=== PATIENT | male | born 1975 | race Caucasian/White ===

== ENCOUNTER 2021-11-14 11:00 | Outpatient (CLI) | payer OTHER, SELFPAY ==
[2021-11-14 17:24] LABS: Chloride* 103 mmol/L (96-114); Sodium* 139 mmol/L (135-149)
[2021-11-14 17:27] LABS: Blood Urea Nitrogen* 15 mg/dL (5-24); Carbon Dioxide* 28 mmol/L (20-32); Cholesterol* 151 mg/dL (90-199); Estimated Glomerular Filt Rate 95 ml/min
[2021-11-14 17:28] LABS: Calcium* 9.5 mg/dL (8.4-10.6); Glucose* 103 mg/dL (60-115); HDL Cholesterol* 38 mg/dL (>=40); LDL Cholesterol Calculated 85 mg/dL (<100); Triglycerides* 141 mg/dL (40-149)
== END 2021-11-14 11:01 | disposition home or self-care (01) ==
PROVIDERS: PCP Family Medicine; Visit Provider Family Medicine
DX: Z00.00 Encounter for general adult medical examination without abnormal findings (principal); E66.9 Obesity, unspecified; I25.10 Atherosclerotic heart disease of native coronary artery without angina pectoris; Z13.1 Encounter for screening for diabetes mellitus
CPT/HCPCS: 80048; 80061

== ENCOUNTER 2022-08-27 07:54 | Outpatient (CLI) | payer OTHER, SELFPAY | END 2022-08-27 07:55 | disposition home or self-care (01) | PROVIDERS: PCP Family Medicine; Visit Provider Family Medicine | DX: E66.9 Obesity, unspecified (principal); Z13.0 Encounter for screening for diseases of the blood and blood-forming organs and certain disorders involving the immune mechanism; Z13.6 Encounter for screening for cardiovascular disorders | CPT/HCPCS: 80048; 80061 ==

== ENCOUNTER 2023-11-17 13:53 | Outpatient (CLI) | payer BC, SELFPAY | END 2023-11-17 13:54 | disposition home or self-care (01) | PROVIDERS: PCP Family Medicine; Visit Provider Family Medicine | DX: E78.5 Hyperlipidemia, unspecified (principal); I25.10 Atherosclerotic heart disease of native coronary artery without angina pectoris | CPT/HCPCS: 80053; 80061 ==

== ENCOUNTER 2024-08-30 13:01 | Outpatient (CLI) | payer BC, SELFPAY | END 2024-08-30 13:02 | disposition home or self-care (01) | LOC: LKVREF 13:04 | PROVIDERS: PCP Family Medicine; Visit Provider Family Medicine | DX: Z12.5 Encounter for screening for malignant neoplasm of prostate (principal) | CPT/HCPCS: G0103 ==

== ENCOUNTER 2024-11-22 10:01 | Outpatient (CLI) | payer BC, SELFPAY | END 2024-11-22 10:02 | disposition home or self-care (01) | PROVIDERS: PCP Family Medicine; Visit Provider Family Medicine | DX: E78.2 Mixed hyperlipidemia (principal); Z12.5 Encounter for screening for malignant neoplasm of prostate; Z13.29 Encounter for screening for other suspected endocrine disorder | CPT/HCPCS: 80061; 84443; G0103 ==